=== PATIENT | female | born 1995 | race Caucasian/White ===

== ENCOUNTER 2019-02-05 18:30 | Inpatient (IN) | payer SELFPAY ==
[2019-02-05] MEDS ORDERED: Ketorolac Tromethamine 30 MG/ML VIAL ONE (19:29)
[2019-02-05 19:32] LABS: #Basophils 0.2 thou/uL (0.0-0.2); #Eosinphils 0.4 thou/uL (0.0-0.7); #Lymphocytes 3.6 thou/uL (1.20-3.40); #Monocytes 0.8 thou/uL (0.11-0.59); #Neutrophils 7.7 thou/uL (1.40-6.50); %Basophils 1.3 % (0.0-1.0); %Eosinophils 3.1 % (0.0-10.0); %Lymphocytes 28.6 % (21.0-51.0); %Monocytes 6.6 % (0.0-10.0); %Neutrophils 60.5 % (42.0-75.0); Mean Corpuscular HGB CONC 32.2 g/dL (32.0-36.0); Mean Corpuscular Hemoglobin 28.3 pg (27.0-31.0); Mean Corpuscular Volume 87.8 fL (78.0-98.0); Platelet Count 316 thou/uL (130-400); RBC Distribution Width 13.6 % (11.5-14.5); Red Blood Cell (RBC) Count 4.93 mill/uL (4.20-5.40); White Blood Cell (WBC) Count 12.7 thou/uL (4.8-10.8)
--- NOTE | 2019-02-05 19:41 | RAD ---
EXAM: Chest Two Views 02/05/2019 7:38 PM HISTORY: Right upper quadrant abdominal pain and cough COMPARISON: None. FINDINGS: Heart: Normal in size and contour. Pulmonary vessels: Normal. Costophrenic angles: Clear. Lungs: No acute airspace consolidation. Pneumothorax: None. Osseous structures:Intact. Additional findings: None. IMPRESSION: No significant acute intrathoracic disease.
[2019-02-05 19:42] LABS: BHCG - Serum Negative (NEGATIVE); Pregs Control Background? CLEAR/WHITE (CLR/WHITE); Pregs Control Bar Appear? YES (CONTROL BAR)
[2019-02-05 19:50] LABS: ALT (SGPT) 27 U/L (8-55); AST (SGOT) 19 U/L (5-34); Albumin 3.9 g/dL (3.5-5.0); Alkaline Phosphatase 105 U/L (40-110); Anion Gap 14 mmol/L (10-20); BUN (Urea Nitrogen) 10 mg/dL (7.0-18.7); Bilirubin, Total 0.2 mg/dL (0.2-1.2); Calc. Creatinine Clearance 0 mL/min (70-130); Calcium 9.5 mg/dL (7.8-10.44); Carbon Dioxide 23 mmol/L (22-29); Chloride 108 mmol/L (98-107); Estimated GFR-MDRD Greater than 90; Glucose 96 mg/dL (70-105); Lipase 14 U/L (8-78); Protein, Total 6.9 g/dL (6.0-8.3); Sodium 141 mmol/L (136-145)
[2019-02-05] MEDS ORDERED: Ondansetron PF 4 MG/2 ML Vial ONE (20:22)
--- NOTE | 2019-02-05 20:51 | ULT ---
SONOGRAM RIGHT UPPER QUADRANT: History: Right upper quadrant pain. FINDINGS: Multiple large shadowing stones are present within the gallbladder lumen. Patient was reportedly tend er over the gallbladder fossa at the time of the exam. No gallbladder wall thickening or pericholecys tic fluid are evident. Common duct measures up to 1.4 cm. Liver is heterogeneous without focal mass or intrahepatic biliary dilatation. No free fluid. IMPRESSION: 1. Cholelithiasis. 2. Dilated common bile duct suggests central biliary obstruction. There was also a positive sonograph ic Bettencourt's sign suggestive of acute cholecystitis. Clinical correlation regarding other signs and sy mptoms of acute cholecystitis and biliary obstruction is required. POS: BST
[2019-02-05] MEDS ORDERED: Piperacillin/Tazobactam 4.5 GM VIAL ONE (20:59)
[2019-02-05] MEDS ORDERED: hydrALAZINE 20 MG/ML VIAL SLOW IVP PRN (23:33)
[2019-02-05] MEDS ORDERED: Morphine 4 MG/ML VIAL SLOW IVP PRN (23:33)
[2019-02-05] MEDS ORDERED: Promethazine HCl 25 MG/ML VIAL IM PRN (23:33)
[2019-02-05] MEDS ORDERED: Acetaminophen 1,000 MG in Premix Bag 1 BAG IVPB PRN (23:33)
[2019-02-05] MEDS ORDERED: Ondansetron PF 4 MG/2 ML Vial IVP PRN (23:33)
[2019-02-05] MEDS ORDERED: Mag-Al 1200 mg/1200 mg/30 ML UDCUP PO PRN (23:33)
[2019-02-05] MEDS ORDERED: Morphine 2 MG/ML SYRINGE SLOW IVP PRN (23:33)
[2019-02-05] MEDS ORDERED: Calcium Carbonate 500 MG ChewTAB PO PRN (23:33)
[2019-02-05] MEDS ORDERED: Dextrose 5% in Water 1,000 ML IV PRN (23:33)
[2019-02-05] MEDS ORDERED: Dextrose 50% Abboject 50 ML SYRINGE SLOW IVP PRN (23:33)
[2019-02-05] MEDS ORDERED: Famotidine/PF 20 mg/2ml Vial SLOW IVP SCH (23:45)
[2019-02-05 23:49] VITALS: BMI 39.4
[2019-02-05] MEDS: Sodium Chloride 0.9% 1,000 ML IV SCH (23:57)
[2019-02-06] MEDS ORDERED: Ketorolac Tromethamine 30 MG/ML VIAL IVP PRN (02:00)
[2019-02-06] MEDS: Piperacillin/Tazobactam 3.375 GM in Sodium Chloride 0.9% 100 ML IVPB SCH ×2 (03:33→08:57)
[2019-02-06 05:39] LABS: ALT (SGPT) 41 U/L (8-55); AST (SGOT) 61 U/L (5-34); Albumin 3.2 g/dL (3.5-5.0); Alkaline Phosphatase 84 U/L (40-110); Anion Gap 9 mmol/L (10-20); BUN (Urea Nitrogen) 12 mg/dL (7.0-18.7); Bilirubin, Total 0.4 mg/dL (0.2-1.2); Calc. Creatinine Clearance 208 mL/min (70-130); Calcium 8.2 mg/dL (7.8-10.44); Carbon Dioxide 25 mmol/L (22-29); Chloride 108 mmol/L (98-107); Estimated GFR-MDRD Greater than 90; Globulin 2.5 g/dL (2.4-3.5); Glucose 91 mg/dL (70-105); Lipase 7 U/L (8-78); Potassium 3.8 mmol/L (3.5-5.1); Protein, Total 5.7 g/dL (6.0-8.3); Sodium 138 mmol/L (136-145)
[2019-02-06] MEDS: Sodium Chloride 0.9% 1,000 ML IV SCH (08:57)
[2019-02-06] MEDS ORDERED: Famotidine 20 MG TAB PO SCH ×2 (09:00→21:00)
[2019-02-06] MEDS ORDERED: FLU VACC QS2019-20(6MOS UP)/PF 60 MCG/0.5 ML SYRINGE IM ONE (09:00)
[2019-02-06] MEDS ORDERED: Famotidine/PF 20 mg/2ml Vial SLOW IVP SCH ×2 (09:00→21:00)
--- NOTE | 2019-02-06 09:44 | HP ---
CHIEF COMPLAINT: Right upper quadrant pain. HISTORY OF PRESENT ILLNESS: This is a 23-year-old female with a history of intermittent right upper quadrant pain that always resolved. She now presents with intractable pain in the right upper quadrant, sharp. Radiates around toward her right back, associated with nausea and increased acid reflux symptoms. Denies previous known history of jaundice or pancreatitis. She states that she does have chronic acid reflux symptoms and wonders if that is related. MEDICAL HISTORY: Negative. SURGICAL HISTORY: . MEDICATIONS: Medicines taken daily, none. ALLERGIES: NO KNOWN DRUG ALLERGIES. SOCIAL HISTORY: She is a smoker. No alcohol or other drugs. REVIEW OF SYSTEMS: 10-system review of systems is otherwise negative other than described above. PHYSICAL EXAMINATION: VITAL SIGNS: Blood pressure 106/71, pulse 93, respirations 16. She is afebrile. HEENT: Sclerae anicteric. Oropharynx clear. NECK: No lymphadenopathy. CHEST: Clear. HEART: Regular rate and rhythm. ABDOMEN: Soft, tender right upper quadrant with localized guarding. No rebound. LABORATORY DATA: White blood cell count is 12, hemoglobin 14. Sodium 138, potassium 3.8, creatinine 0.68. Liver tests were normal except her AST is elevated at 61. Lipase normal. Ultrasound, dilated common bile duct, gallstones. ASSESSMENT: Acute cholecystitis with dilated common bile duct. PLAN: Laparoscopic cholecystectomy and intraoperative cholangiogram. Risks, benefits, and alternatives were discussed. She gives consent. We will do this today. Job ID: [id number]
[2019-02-06] MEDS ORDERED: Bupivacaine/Epinephrine 0.25% 30 ML VIAL ONE ×2 (10:34→11:54)
[2019-02-06] MEDS ORDERED: Fentanyl 250 MCG/5 ML VIAL ONE (10:39)
[2019-02-06] MEDS ORDERED: Midazolam HCl 2 mg/2 ml Vial ONE ×2 (10:39→12:05)
[2019-02-06] MEDS ORDERED: Morphine 2 MG/ML SYRINGE ONE (11:07)
[2019-02-06] MEDS ORDERED: Fentanyl 100 MCG/2 ML VIAL ONE (12:05)
[2019-02-06] MEDS ORDERED: Iothalamate Meglumine 60% 50 ML VIAL FS ONE (12:12)
[2019-02-06] MEDS ORDERED: Albuterol Sulfate HFA (OR ONLY) ONE (13:19)
[2019-02-06] MEDS ORDERED: Promethazine HCl 25 MG/ML VIAL SLOW IVP PRN (13:31)
[2019-02-06] MEDS ORDERED: Ondansetron HCl/PF 4 MG/2 ML Vial IVP PRN (13:31)
[2019-02-06] MEDS ORDERED: Promethazine HCl 25 MG/ML VIAL IM PRN ×2 (13:31→14:48)
--- NOTE | 2019-02-06 14:45 | OP ---
DATE OF PROCEDURE: 02/05/2019 PREOPERATIVE DIAGNOSIS: Acute cholecystitis. POSTOPERATIVE DIAGNOSIS: Acute cholecystitis. PROCEDURES PERFORMED: Laparoscopic cholecystectomy with intraoperative cholangiogram. ANESTHESIA: General. ESTIMATED BLOOD LOSS: Minimal. COMPLICATIONS: None. SPECIMEN: Gallbladder. FINDINGS: Normal cholangiogram. DESCRIPTION OF PROCEDURE: The patient was taken to the operating room and laid supine on the operating room table. After general anesthetic was obtained, the abdomen was prepped and draped in a sterile fashion. A straight incision was made above the umbilicus, cautery dissected down to and score the fascia. Abdominal cavity was entered bluntly using a Maryan clamp. Holding stitch of PDS was placed on each side of the facets. Damian trocar was placed. High-flow pneumoperitoneum was obtained. Upper midline 5 mm port and 2 right upper quadrant 5 mm ports were placed in direct visualization. The gallbladder was retracted from the gallbladder fossa. The peritoneum was opened anteriorly and posteriorly. The critical view of triangle was seen showing only the cystic duct and cystic artery branching medial to lateral, no other branching structures. A clip was placed on the cystic duct. A small ductotomy was made just proximal to that and a cholangiocatheter was brought in through a separate incision and placed in the cystic duct and a cholangiogram was performed, which showed good contrast flow into the duodenum, right and left hepatic duct system without obstruction. Cholangiocatheter was removed. Two clips were placed proximally on the cystic duct. It was cut using laparoscopic scissors. Cystic artery was taken using two clips, proximally, one clip distally and cut using laparoscopic scissors. Cautery was used to dissect the gallbladder out of the gallbladder fossa, gallbladder was placed in EndoCatch bag and brought out through the Damian. There was no bleeding in the liver bed. All port sites were infiltrated using local anesthetic. All ports were removed under camera visualization. Pneumoperitoneum was let down. PDS used to close the fascial defect above the umbilicus. All incisions were irrigated closing 4-0 Monocryl and Dermabond. The patient was en route to Recovery in stable condition. All instrument counts, needle counts, and lap counts were correct. Job ID: [id number]
[2019-02-06] MEDS ORDERED: hydrALAZINE 20 MG/ML VIAL SLOW IVP PRN (14:48)
[2019-02-06] MEDS ORDERED: Dextrose 5% in Water 1,000 ML IV PRN (14:48)
[2019-02-06] MEDS ORDERED: Morphine 4 MG/ML VIAL SLOW IVP PRN (14:48)
[2019-02-06] MEDS ORDERED: D5 1/2 NS w/20 mEq KCL 1,000 ML IV SCH (14:48)
[2019-02-06] MEDS ORDERED: Mag-Al 1200 mg/1200 mg/30 ML UDCUP PO PRN (14:48)
[2019-02-06] MEDS ORDERED: Calcium Carbonate 500 MG ChewTAB PO PRN (14:48)
[2019-02-06] MEDS ORDERED: Ondansetron PF 4 MG/2 ML Vial IVP PRN (14:48)
[2019-02-06] MEDS ORDERED: Morphine 2 MG/ML SYRINGE SLOW IVP PRN (14:48)
[2019-02-06] MEDS ORDERED: Dextrose 50% Abboject 50 ML SYRINGE SLOW IVP PRN (14:48)
[2019-02-06] MEDS: HYDROcodone/Acetaminophen 10/325 mg Tablet PO PRN (18:37)
--- NOTE | 2019-02-06 19:15 | RAD ---
Intraoperative cholangiogram fluoroscopy HISTORY: Cholecystitis. FINDINGS: Intraoperative fluoroscopy was provided for cholangiogram as performed by Dr. Paulino. Spot fluoroscopic images shows contrast opacification of a nondilated common duct. Contrast has passed into the duodenum. No filling defects are reliably demonstrated. Fluoroscopy time 12 seconds.
[2019-02-07 00:26] VITALS: BP 145/89; TEMP 98.4
[2019-02-07] MEDS: HYDROcodone/Acetaminophen 10/325 mg Tablet PO PRN (00:38)
== END 2019-02-07 01:30 | disposition home or self-care (01) | DRG 419 ==
LOC: SCSER 18:30 → SURG A 20:50 → OBSVTOIN 20:50 → SCSER 22:49
PROVIDERS: ADMIT Surgery; ATTEND Surgery
PROC: 0FT44ZZ Resection of Gallbladder, Percutaneous Endoscopic Approach (ICD-10-PCS; principal; 2019-02-05)
PROC: BF101ZZ Fluoroscopy of Bile Ducts using Low Osmolar Contrast (ICD-10-PCS; 2019-02-05)
DX: K81.0 Acute cholecystitis (principal); K21.9 Gastro-esophageal reflux disease without esophagitis; K83.8 Other specified diseases of biliary tract; E66.01 Morbid (severe) obesity due to excess calories; Z68.39 Body mass index [BMI] 39.0-39.9, adult; F17.210 Nicotine dependence, cigarettes, uncomplicated
CPT/HCPCS: 36415; 47532; 71046; 76705; 80053; 83690; 84484; 84703; 85025; 88304; 93005; 96365; 96375; 99406; J0131; J1885; J2250; J2270; J2405; J2543; J3010; J3490; J7620; S0028